=== PATIENT | female | born 2000 | race Caucasian/White ===

== ENCOUNTER 2023-03-16 13:44 | Emergency (ER) | payer MEDICAID ==
[~2023-03-16] VITALS: Ht 162.6 cm; Wt 64.2 kg
[2023-03-16] MEDS ORDERED: PROCHLORPERAZINE EDISYLATE 5 MG/ML 2ML VIAL IV ONE (14:15)
[2023-03-16] MEDS ORDERED: SODIUM CHLORIDE 0.9% 1,000 ML IVB ONE (14:15)
[2023-03-16] MEDS ORDERED: PANTOPRAZOLE 40 MG/10 ML VIAL INJ IV ONE (14:15)
[2023-03-16 14:35] VITALS: BP 116/83; PULSE 113; RESP 18; TEMP 97.9; O2SAT 97
[2023-03-16 14:56] LABS: Basophils # (auto) 0 10 ^3/uL (0-0.2); Basophils % (auto) 0.3 % (0.0-2.0); Eosinophils # (auto) 0 10 ^3/uL (0-0.8); Eosinophils % (auto) 0.5 % (0.0-7.0); Hemoglobin 16.8 g/dL (12.2-16.2); Lymphocytes # (auto) 0.8 10 ^3/uL (0.4-5.4); Lymphocytes % (auto) 9.9 % (10.0-50.0); Mean Corpuscular Hemoglobin 28.5 pg (28.0-32.0); Mean Corpuscular Hgb Conc. 33.6 g/dL (32.0-36.0); Mean Corpuscular Volume 84.7 fL (80.0-100.0); Monocytes # (auto) 0.5 10 ^3/uL (0-1.3); Monocytes % (auto) 6.5 % (0.0-12.0); Neutrophils # (auto) 6.6 10 ^3/uL (1.6-8.6); Neutrophils % (auto) 82.8 % (37.0-80.0); Nucleated Red Blood Cells % 0.2 %; White Blood Cell 7.9 10^3/uL (4.4-10.8)
[2023-03-16] MEDS ORDERED: PANT40TA2 PO (17:18)
[2023-03-16] MEDS ORDERED: ZOFR4T PO (17:18)
== END 2023-03-16 19:09 | disposition home or self-care (01) ==
LOC: ER 13:44
DX: K52.9 Noninfective gastroenteritis and colitis, unspecified (principal); Z90.49 Acquired absence of other specified parts of digestive tract; Z79.899 Other long term (current) drug therapy; Z88.8 Allergy status to other drugs, medicaments and biological substances
CPT/HCPCS: 36415; 85025; 96361; 96374; 96375; 99284; C9113; J0780; J7030